=== PATIENT | male | born 1955 | race Caucasian/White ===

== ENCOUNTER 2020-04-25 11:41 | Emergency (ER) | payer OTHER, MEDICARE ==
[~2020-04-25] VITALS: Ht 172.7 cm; Wt 90.7 kg
[~2020-04-25 11:41] MED LIST: LEVFLO500 PO; Zofran8 MG PO
[2020-04-25 12:08] LABS: BASOPHILS ABSOLUTE AUTO 0.05 K/mm3 (0.00-0.23); BASOPHILS PERCENT AUTO 1 % (0-2); EOSINOPHILS ABSOLUTE AUTO 0.04 K/mm3 (0.00-0.68); EOSINOPHILS PERCENT AUTO 1 % (0-6); Hematocrit 48.9 % (37.0-53.0); Hemoglobin 16.4 g/dL (13.5-17.5); IMMATURE GRAN ABSOLUTE AUTO 0.01 K/mm3 (0.00-0.10); IMMATURE GRAN PERCENT AUTO 0 % (0-1); LYMPHOCYTES ABSOLUTE AUTO 1.51 K/mm3 (0.84-5.20); LYMPHOCYTES PERCENT AUTO 21 % (21-46); MONOCYTES ABSOLUTE AUTO 0.93 K/mm3 (0.16-1.47); MONOCYTES PERCENT AUTO 13 % (4-13); Mean Corpuscular HGB Conc 33.5 g/dL (31.5-36.5); Mean Corpuscular Volume 101 fL (80-100); Mean Platelet Volume 9.9 fL (9.1-12.4); NEUTROPHILS PERCENT AUTO 65 % (41-73); Platelet Count 160 K/mm3 (150-400); RDW Coefficient Variation 11.9 % (11.7-14.2); RDW Standard Deviation 45.4 fL (35.1-46.3); Red Blood Cell Count 4.83 M/mm3 (4.30-5.90); White Blood Cell Count 7.14 K/mm3 (4.00-11.30)
[2020-04-25 12:27] LABS: Alanine Aminotransfer (ALT/SGP 177 U/L (12-78); Albumin, Blood 3.7 g/dL (3.4-5.0); Albumin/Globulin Ratio 0.7 (0.8-1.8); Alk Phos 102 U/L (50-136); Anion Gap 9 mmol/L (6-16); Aspartate Aminotrans (AST/SGOT 175 U/L (12-37); Bilirubin, Total 0.7 mg/dL (0.1-1.0); Blood Urea Nitrogen 14 mg/dL (8-24); Bun/Creatinine Ratio 17.5 (12.0-20.0); CO2, Blood 24 mmol/L (21-32); Calcium, Blood 9.4 mg/dL (8.5-10.1); Chloride, Blood 105 mmol/L (98-108); Globulin, Blood 5.3 g/dL (2.2-4.0); Glomerular Filtration Rate >60 (60-); Glucose, Blood 176 mg/dL (70-99); Sodium, Blood 138 mmol/L (136-145)
[2020-04-25] MEDS ORDERED: MECL25 PO (16:20)
[2020-04-25] MEDS ORDERED: MECLIZINE HCL PO (16:21)
== END 2020-04-25 16:35 | disposition home or self-care (01) ==
LOC: ER 11:41
PROVIDERS: Physician Assistant
DX: R42 Dizziness and giddiness (principal); F17.220 Nicotine dependence, chewing tobacco, uncomplicated; Z79.899 Other long term (current) drug therapy
CPT/HCPCS: 36415; 70450; 80053; 83735; 84484; 85025; 93005; 93010; 99284-25

== ENCOUNTER 2024-05-11 12:24 | Inpatient (IN) | payer OTHER ==
[~2024-05-11] VITALS: Ht 172.7 cm; Wt 82.7 kg
[~2024-05-11 12:24] MED LIST changes: +MECL25 PO; +MECLIZINE HCL PO
[2024-05-11 13:08] LABS: BASOPHILS ABSOLUTE AUTO 0.04 K/mm3 (0.00-0.23); BASOPHILS PERCENT AUTO 1 % (0-2); EOSINOPHILS PERCENT AUTO 2 % (0-6); Hematocrit 48.5 % (37.0-53.0); Hemoglobin 16.8 g/dL (13.5-17.5); IMMATURE GRAN ABSOLUTE AUTO 0.03 K/mm3 (0.00-0.10); IMMATURE GRAN PERCENT AUTO 1 % (0-1); LYMPHOCYTES ABSOLUTE AUTO 1.84 K/mm3 (0.84-5.20); LYMPHOCYTES PERCENT AUTO 29 % (21-46); MONOCYTES ABSOLUTE AUTO 1.02 K/mm3 (0.16-1.47); MONOCYTES PERCENT AUTO 16 % (4-13); Mean Corpuscular HGB 33.3 pg (26.0-34.0); Mean Corpuscular HGB Conc 34.6 g/dL (31.5-36.5); Mean Corpuscular Volume 96 fL (80-100); Mean Platelet Volume 9.9 fL (9.1-12.4); NEUTROPHILS ABSOLUTE AUTO 3.26 K/mm3 (1.96-9.15); NEUTROPHILS PERCENT AUTO 52 % (41-73); Platelet Count 101 K/mm3 (150-400); RDW Coefficient Variation 12.2 % (11.7-14.2); RDW Standard Deviation 43.3 fL (35.1-46.3); Red Blood Cell Count 5.05 M/mm3 (4.30-5.90); White Blood Cell Count 6.29 K/mm3 (4.00-11.30)
[2024-05-11] MEDS ORDERED: METO100ER PO (13:11)
[2024-05-11] MEDS ORDERED: Crestor40 MG PO (13:11)
[2024-05-11] MEDS ORDERED: METF500 PO (13:11)
[2024-05-11 13:23] LABS: Albumin, Blood 3.7 g/dL (3.4-5.0); Albumin/Globulin Ratio 0.8 (0.8-1.8); Bilirubin, Total 0.6 mg/dL (0.1-1.0); Bun/Creatinine Ratio 26.4 (12.0-20.0); Calcium, Blood 9.2 mg/dL (8.5-10.1); Creatinine, Blood 0.98 mg/dL (0.60-1.20); Globulin, Blood 4.4 g/dL (2.2-4.0); Potassium, Blood 3.9 mmol/L (3.5-5.5); Total Protein, Blood 8.1 g/dL (6.4-8.2)
[2024-05-11] MEDS ORDERED: Nitroglycerin 0.4 MG SUBL SL PRN (14:40)
[2024-05-11] MEDS ORDERED: Acetaminophen 325 MG TABLET PO PRN (14:40)
[2024-05-11] MEDS ORDERED: FentaNYL Citrate 50 MCG/ML 2 ML Injection IV PRN (14:40)
[2024-05-11 15:20] LABS: CHOL/HDL RATIO 2.9; Cholesterol 170 mg/dL (50-200); HDL Cholesterol 58 mg/dL (>39); LDL/HDL RATIO 1.6; Low Density Lipoprotein Chol 93 mg/dL (0-110); Triglycerides 94 mg/dL (30-160); Very Low Density Lipoprot Chol 18 mg/dL (6-32)
[2024-05-11] MEDS ORDERED: Aspirin 325 MG Tab PO ONE (15:30)
[2024-05-11] MEDS ORDERED: HydrALAZINE HCl 20 MG / ML 1ML Vial IV PRN (15:35)
[2024-05-11 15:56] LABS: Anti-Xa UFH, PHA Monitoring <0.10 IU/mL; International Normalized Ratio 1.05; Prothrombin Time Results 11.2 Sec (9.7-11.5)
[2024-05-11] MEDS ORDERED: Heparin Sodium 5000 Units/ML 1ML MDV IV ONE (16:20)
[2024-05-11] MEDS ORDERED: Heparin Sodium,Porcine/0.5 NS 500 ML IV SCH (16:20)
[2024-05-11] MEDS ORDERED: MELATONIN5 M2 PO (16:28)
[2024-05-11 20:30] VITALS: BP 104/55
[2024-05-11] MEDS ORDERED: Melatonin 5 MG Tablet PO SCH ×2 (21:00)
[2024-05-11] MEDS ORDERED: Dose Adjust by Pharmacy XX STA (23:42)
[2024-05-11 23:47] VITALS: BP 108/62
[2024-05-12] VITALS (8 sets, daily range): BP systolic 109–138; BP diastolic 63–78
--- NOTE | 2024-05-12 04:28 | NUR ---
SHIFT SUMMARY. SHIFT HAS BEEN UNREMARKABLE. PT AOX4, PLEASANT, COOPERATIVE WITH CARE, CALLS APPROPRIATELY, ABLE TO MAKE NEEDS KNOWN. HAS SLEPT THROUGHOUT MOST OF SHIFT. HEPARIN INFUSION RUNNING THROUGHOUT SHIFT, TITRATED DOWN TO 14 UNITS/KG/HR. NO CHEST PAIN REPORTED THROUGHOUT SHIFT. VITALS HAVE REMAINED STABLE. NPO SINCE MIDNIGHT PENDING ANGIO 05/12 ON DAY SHIFT. SBA FOR LINE MANAGEMENT, CALLS APPROPRIATELY FOR ASSISTANCE. TELE ON THROUGHOUT SHIFT, NO ACUTE CHANGES OR EVENTS THUS FAR. BED LOCKED IN LOWEST POSITION. CALL LIGHT LEFT WITHIN REACH. CONTINUING TO MONITOR.
[2024-05-12] MEDS ORDERED: Omeprazole 20 MG CapCR PO SCH (06:00)
[2024-05-12 06:06] LABS: BASOPHILS ABSOLUTE AUTO 0.03 K/mm3 (0.00-0.23); BASOPHILS PERCENT AUTO 1 % (0-2); EOSINOPHILS ABSOLUTE AUTO 0.12 K/mm3 (0.00-0.68); EOSINOPHILS PERCENT AUTO 2 % (0-6); Hematocrit 47.6 % (37.0-53.0); Hemoglobin 16.5 g/dL (13.5-17.5); IMMATURE GRAN ABSOLUTE AUTO 0.03 K/mm3 (0.00-0.10); IMMATURE GRAN PERCENT AUTO 1 % (0-1); LYMPHOCYTES ABSOLUTE AUTO 1.32 K/mm3 (0.84-5.20); LYMPHOCYTES PERCENT AUTO 25 % (21-46); MONOCYTES PERCENT AUTO 15 % (4-13); Mean Corpuscular HGB 33.4 pg (26.0-34.0); Mean Corpuscular HGB Conc 34.7 g/dL (31.5-36.5); Mean Corpuscular Volume 96 fL (80-100); Mean Platelet Volume 9.7 fL (9.1-12.4); NEUTROPHILS ABSOLUTE AUTO 3.05 K/mm3 (1.96-9.15); NEUTROPHILS PERCENT AUTO 57 % (41-73); Platelet Count 88 K/mm3 (150-400); RDW Coefficient Variation 12.4 % (11.7-14.2); RDW Standard Deviation 44.3 fL (35.1-46.3); Red Blood Cell Count 4.94 M/mm3 (4.30-5.90); White Blood Cell Count 5.35 K/mm3 (4.00-11.30)
[2024-05-12 06:27] LABS: Bun/Creatinine Ratio 24.7 (12.0-20.0); Calcium, Blood 8.8 mg/dL (8.5-10.1); Creatinine, Blood 0.97 mg/dL (0.60-1.20); Potassium, Blood 4.4 mmol/L (3.5-5.5)
[2024-05-12] MEDS ORDERED: Clarify Drug Order XX ONE (06:30)
[2024-05-12] MEDS ORDERED: Insulin Regular 100 UNIT/ML 10ML Vial SC SCH (07:30)
[2024-05-12] MEDS ORDERED: Aspirin 81 MG Chew PO SCH (09:00)
[2024-05-12] MEDS ORDERED: Metoprolol Succinate 50 MG TABCR PO SCH (09:00)
[2024-05-12] MEDS ORDERED: Atorvastatin 40 MG Tab PO SCH (09:00)
--- NOTE | 2024-05-12 09:12 | NUR ---
AM NOTE this rn assumed care at 0700. vital signs stable. sinus rhythm tele. patient is npo for angio today. patient is alert and oriented x4. neuro is intact. patient is able to make needs known and uses call light appropriately. denies chest pain/pressure, pain, or shortness of breath. see shift assessment for further detials. plan of care is up to date at this time. heparin infusing. see emar.
[2024-05-12] MEDS ORDERED: NS 250 ML IV ONE (09:37)
[2024-05-12] MEDS ORDERED: NS 1,000 ML IV ONE ×2 (09:37→09:46)
[2024-05-12] MEDS ORDERED: Heparin Sodium 1000 Units/ML 10ML MDV ONE ×2 (09:37→09:46)
[2024-05-12] MEDS ORDERED: Nitroglycerin 2 MG/20 ML BTL ONE (09:38)
[2024-05-12] MEDS ORDERED: NiCARdipine HCL 1,000 MCG/5 ML SYR ONE (09:38)
[2024-05-12] MEDS ORDERED: FentaNYL Citrate 50 MCG/ML 2 ML Injection ONE (09:47)
[2024-05-12] MEDS ORDERED: Midazolam HCl 1MG / ML 2ML Vial ONE ×2 (09:47)
--- NOTE | 2024-05-12 10:23 | NUR ---
left for angio patient left for angio approx [phone].
--- NOTE | 2024-05-12 12:01 | NUR ---
RETURN FROM ANGIO patient returned from angio approx 1035. vital signs stable. right radial site, soft nontender no bleeding, tr band in place. patient to be cobra transfered. updated on accepting doctor at [facility], awaiting a bed.
--- NOTE | 2024-05-12 14:13 | NUR ---
TRANSFER TO [facility] ROOM 278 this rn gave report to the nurse at [facility], name racheal. patient left with ambulance approx 1355, patient at bedside and took some of patient belongings and patient took the rest of his belongings that he wanted to take with him. patient left in no distress. patient right radial site was fully recoverd from tr band and deflated but tr band in place for an hour after delfation and can be removed at 1455. this rn told the ambulance and the nurse assuming care.
== END 2024-05-12 14:00 | disposition short-term general hospital (02) | DRG 282 ==
LOC: ER 12:24 → PCU 14:38
PROVIDERS: Emergency Medicine; ADMIT Family Medicine
PROC: 4A023N7 Measurement of Cardiac Sampling and Pressure, Left Heart, Percutaneous Approach (ICD-10-PCS; principal; 2024-05-12)
PROC: B2111ZZ Fluoroscopy of Multiple Coronary Arteries using Low Osmolar Contrast (ICD-10-PCS; 2024-05-12)
DX: I21.4 Non-ST elevation (NSTEMI) myocardial infarction (principal); E11.9 Type 2 diabetes mellitus without complications; E78.5 Hyperlipidemia, unspecified; I10 Essential (primary) hypertension; F17.220 Nicotine dependence, chewing tobacco, uncomplicated; Z90.49 Acquired absence of other specified parts of digestive tract; Z79.84 Long term (current) use of oral hypoglycemic drugs; Z79.899 Other long term (current) drug therapy; D69.6 Thrombocytopenia, unspecified; I45.10 Unspecified right bundle-branch block
CPT/HCPCS: 36415; 76937; 80048; 80053; 80061; 82947; 83690; 84484; 85025; 85520; 85610; 85730; 93005; 93010; 93306; 93454; 94762; 99152; 99285-25; A9270; C1769; C1887; C1894; J1644; J2250; J3010; J7030; J7050; Q9967

== ENCOUNTER 2024-06-06 03:26 | Emergency (ER) | payer OTHER ==
[~2024-06-06] VITALS: Ht 172.7 cm; Wt 90.3 kg
[~2024-06-06 03:26] MED LIST changes: +Crestor40 MG PO; +MELATONIN5 M2 PO; +METF500 PO; +METO100ER PO
[2024-06-06 04:05] LABS: BASOPHILS ABSOLUTE AUTO 0.03 K/mm3 (0.00-0.23); BASOPHILS PERCENT AUTO 0 % (0-2); EOSINOPHILS ABSOLUTE AUTO 0.12 K/mm3 (0.00-0.68); EOSINOPHILS PERCENT AUTO 2 % (0-6); Hematocrit 35.8 % (37.0-53.0); Hemoglobin 11.4 g/dL (13.5-17.5); IMMATURE GRAN ABSOLUTE AUTO 0.04 K/mm3 (0.00-0.10); IMMATURE GRAN PERCENT AUTO 1 % (0-1); LYMPHOCYTES ABSOLUTE AUTO 0.84 K/mm3 (0.84-5.20); LYMPHOCYTES PERCENT AUTO 11 % (21-46); MONOCYTES ABSOLUTE AUTO 0.98 K/mm3 (0.16-1.47); MONOCYTES PERCENT AUTO 13 % (4-13); Mean Corpuscular HGB 32.2 pg (26.0-34.0); Mean Corpuscular HGB Conc 31.8 g/dL (31.5-36.5); Mean Corpuscular Volume 101 fL (80-100); Mean Platelet Volume 9.2 fL (9.1-12.4); NEUTROPHILS ABSOLUTE AUTO 5.83 K/mm3 (1.96-9.15); NEUTROPHILS PERCENT AUTO 74 % (41-73); Platelet Count 157 K/mm3 (150-400); RDW Coefficient Variation 13.5 % (11.7-14.2); RDW Standard Deviation 50.5 fL (35.1-46.3); Red Blood Cell Count 3.54 M/mm3 (4.30-5.90); White Blood Cell Count 7.84 K/mm3 (4.00-11.30)
[2024-06-06 04:27] LABS: Albumin, Blood 2.7 g/dL (3.4-5.0); Albumin/Globulin Ratio 0.6 (0.8-1.8); Bilirubin, Total 0.8 mg/dL (0.1-1.0); Bun/Creatinine Ratio 24.8 (12.0-20.0); Calcium, Blood 8.5 mg/dL (8.5-10.1); Creatinine, Blood 1.05 mg/dL (0.60-1.20); Globulin, Blood 4.6 g/dL (2.2-4.0); Potassium, Blood 4.5 mmol/L (3.5-5.5); Total Protein, Blood 7.3 g/dL (6.4-8.2)
[2024-06-06 05:30] VITALS: BP 100/68
[2024-06-06] MEDS ORDERED: AZIT250 PO (05:46)
== END 2024-06-06 06:12 | disposition home or self-care (01) ==
LOC: ER 03:26
PROVIDERS: Emergency Medicine
DX: M25.511 Pain in right shoulder (principal); Z98.890 Other specified postprocedural states; J18.9 Pneumonia, unspecified organism; J81.1 Chronic pulmonary edema; I25.10 Atherosclerotic heart disease of native coronary artery without angina pectoris; F17.220 Nicotine dependence, chewing tobacco, uncomplicated
CPT/HCPCS: 71046; 80053; 84484; 85025; 93005; 93010; 99285-25